=== PATIENT | female | born 2000 | race Caucasian/White ===

== ENCOUNTER 2020-07-12 07:24 | Outpatient (CLI) | payer BC, SELFPAY ==
--- NOTE | ~2020-07-12 | US_ITS ---
EXAMINATION: US abdomen complete DATE: 07/12/2020 07:58 INDICATION: Leukopenia TECHNIQUE: Multiple grayscale and Doppler ultrasound images of the abdomen were obtained. COMPARISON: None available FINDINGS: The head and body of the pancreas are normal. The pancreatic tail is obscured by bowel gas. The liver is normal with normal echogenicity and echotexture. No surface nodularity. Normal hepatope isak flow in the main portal vein. The gallbladder is normal with no abnormal wall thickening, pericho lecystic fluid or stones. The normal common bile duct measures 3 mm. There was no sonographic Kendall sign. The visualized portions of the aorta and inferior vena cava are normal. The right kidney measures 9.7 x 4.1 x 5.6 cm. The left kidney measures 10.9 x 4.8 x 5.7 cm. The kidne ys demonstrate normal parenchymal echogenicity. There is no hydronephrosis. The spleen is normal in a ppearance and measures 11.2 cm. IMPRESSION: 1. No sonographic correlate for the patient's symptoms. Reviewed, dictated and finalized at location A.
== END 2020-07-12 07:25 | disposition home or self-care (01) ==
PROVIDERS: PCP Nurse Practitioner Family; Visit Provider Internal Medicine Hematology & Oncology
DX: D72.819 Decreased white blood cell count, unspecified (principal)
CPT/HCPCS: 76700

== ENCOUNTER 2023-07-02 14:09 | Outpatient (CLI) | payer BC, SELFPAY ==
[2023-07-02 14:28] LABS: Basophils Percent Auto 0.5 % (0.2-1.2); Eosinophils Percent Auto 0.4 % (0-4.4); Hematocrit 41.6 % (37.0-47.0); Immature Granulocyte Absolute 0.01 K/mm3 (0.00-0.031); Immature Granulocyte Percent A 0.2 % (0-0.5); Lymphocytes Absolute Auto 1.37 K/mm3 (0.9-3.2); Lymphocytes Percent Auto 24.6 % (18.3-44.2); Mean Corpuscular HGB Conc 33.7 g/dl (32-36); Mean Corpuscular Volume 95.2 fl (80-100); Mean Platelet Volume 8.5 fl (7.4-10.4); Monocytes Absolute Auto 0.3 K/mm3 (0.1-0.6); Monocytes Percent Auto 5.9 % (2.6-8.5); Neutrophils Absolute Auto 3.8 K/mm3 (1.3-6.7); Neutrophils Percent Auto 68.4 % (45.5-73.1); Platelet Count Result 191 k/mm3 (150-375); Red Blood Count 4.37 M/mm3 (4.2-5.4); Red Cell Distribution Width 11.3 % (11.5-14.5); White Blood Count 5.6 K/mm3 (4.5-10.0)
[2023-07-02 16:33] LABS: Iron 221 ug/dL (37-170)
[2023-07-02 16:41] LABS: Alanine Aminotransferase 23 U/L (6-35); Albumin Level 5.1 g/dL (3.5-5.1); Alkaline Phosphatase 58 U/L (38-126); Anion Gap 10 mmol/L (4-12); Aspartate Amino Transferase 25 U/L (14-36); Bilirubin,Total 1.1 mg/dL (0.2-1.3); Blood Urea Nitrogen 13 mg/dL (7-17); Calcium 10.2 mg/dL (8.4-10.2); Carbon Dioxide 27 mmol/L (22-30); Chloride 105 mmol/L (98-107); Estimated Glomerular Filt Rate > 60; Glucose 100 mg/dL (65-110); Potassium 4.3 mmol/L (3.4-5.0); Sodium 142 mmol/L (137-145)
[2023-07-02 16:42] LABS: Percent Iron Saturation 67 % (20-50)
[2023-07-06 09:38] LABS: Methylmalonic Acid 87 nmol/L (87-318)
== END 2023-07-02 14:10 | disposition home or self-care (01) ==
LOC: ANHLAB 14:12
PROVIDERS: Nurse Practitioner Family; PCP Physician Assistant; Visit Provider Internal Medicine Hematology & Oncology
DX: D70.9 Neutropenia, unspecified (principal); D50.9 Iron deficiency anemia, unspecified
CPT/HCPCS: 36415; 80053; 82607; 82746; 83540; 83550; 83921; 85025; 86038

== ENCOUNTER 2023-07-19 07:30 | Outpatient (CLI) | payer BC, SELFPAY ==
--- NOTE | ~2023-07-19 | US_ITS ---
Abdominal Sonogram: Real-time sonographic imaging of the abdomen was performed. Clinical History: Neutropenia Findings: The liver appears normal with no evidence of mass lesion or bile duct dilatation. Main por isak vein demonstrates normal direction of flow. The spleen is normal in size without evidence of foca l lesion. The gallbladder is well distended, and appears normal with no evidence of gallstone or wal l thickening. The common bile duct measures 2 mm. The visualized pancreas, aorta, and IVC are unrema rkable. The right kidney measures 10.3 cm in length and the left kidney measures 10.8 cm. There is no hydronephrosis or renal calculus. Impression: Unremarkable abdominal ultrasound. Reviewed, dictated and finalized at location . Impression: Unremarkable abdominal ultrasound.
== END 2023-07-19 07:31 | disposition home or self-care (01) ==
PROVIDERS: PCP Physician Assistant; Visit Provider Nurse Practitioner Family
DX: D70.9 Neutropenia, unspecified (principal)
CPT/HCPCS: 76700